=== PATIENT | male | born 1965 | race African-American/Black ===

== ENCOUNTER 2020-04-14 03:31 | Emergency (ER) | payer OTHER, SELFPAY ==
--- NOTE | ~2020-04-14 | XR_ITS ---
XR chest 2V DATE: 04/14/2020 04:24 INDICATION: Midline chest pain for 3 days TECHNIQUE: PA and lateral views COMPARISON: 08/24/2014 PA and lateral chest FINDINGS: Normal heart size. No hilar or mediastinal enlargement. No pulmonary infiltrate or consolid ation, pleural effusion or pulmonary vascular congestion or pneumothorax. IMPRESSION: No active cardiopulmonary disease Reviewed, dictated and finalized at location D.
--- NOTE | 2020-04-14 03:44 | ECG_ITS ---
Measurements Intervals [place] Rate: 78 P: 35 MI: 176 QRS: 43 QRSD: 109 T: 40 QT: 375 QTc: 430 Interpretive Statements SINUS RHYTHM MINIMAL Q WAVES- INFERIOR LEADS BORDERLINE ECG Electronically Signed On 04-14-2020 7:24:41 CDT by Calixto Garcia D.O.
[2020-04-14 03:47] VITALS: BP 133/87; PULSE 75; RESP 16; TEMP 36.8; O2SAT 97
--- NOTE | 2020-04-14 03:59 | ED.CHESTPAIN ---
HPI - Chest Pain General Chief Complaint: Chest Pain Stated Complaint: Chest pain Time Seen by Provider: 04/14/20 03:43 Source: RN notes reviewed History of Present Illness HPI narrative: Patient presents emergency department from home for chest pain. Patient states pain is been ongoing for the past 3 days. Pain is located in the midsternal chest and does not radiate. The pain does appear to be worse when he eats. Denies any fevers or chills shortness of breath abdominal pain nausea vomiting or any other symptoms. States he took no previous pain medication for her symptoms Related Data Home Medications Medication Instructions Recorded Confirmed hydrochlorothiazide PO DAILY 04/14/20 losartan 100 mg PO DAILY 04/14/20 metformin 500 mg PO DAILY 04/14/20 pantoprazole 40 mg PO DAILY 04/14/20 pravastatin 20 mg PO DAILY 04/14/20 sucralfate PO DAILY 04/14/20 Allergies Allergy/AdvReac Type Severity Reaction Status Date / Time No Known Allergies Allergy Mild Verified 04/14/20 03:53 Review of Systems Review of Systems: Narrative: Gen.: Denies fevers or chills ENT: Denies congestion Respiratory: Denies shortness of breath or cough CV: Reports chest pain GI: Denies abdominal pain nausea, emesis or diarrhea Musculoskeletal: Denies back pain or muscle pain Neuro: Denies numbness, tingling, weakness or focal weakness Skin: Denies rash Except as documented, all other systems reviewed and negative [facility] Past Medical History Medical History (Updated 04/14/20 @ 04:55 by Fidel Lopes DO) Diabetes mellitus Hypercholesterolemia Hypertension Social History Social History (Updated 04/14/20 @ 04:00 by Fidel Lopes DO) Smoking status: Never smoker Exam Narrative: Exam Narrative: APPEARANCE: No acute distress, nontoxic, resting in bed EYES: EOMI HEENT: Normocephalic, atraumatic, OMM RESPIRATORY: No respiratory distress Clear to auscultation bilaterally with no rhonchi wheezing or rales. CARDIOVASCULAR: Regular rate and rhythm without murmurs rubs or gallops. ABDOMINAL: Soft, nontender, nondistended, no rebound or guarding MUSCULOSKELETAl: Moves all extremities. No clubbing, cyanosis or edema. NEURO: Awake and alert. Following commands, speech normal, no focal deficits SKIN:: Warm, dry. No rashes lesions or abrasions PSYCHIATRIC: Normal affect/mood, Course Course Emergency Course: Patient states chest pain is resolved at this time Discussed with Dr. carter presentation work-up. Agrees with admission [facility] Discussed with patient and family results of workup and diagnosis. Discussed need for admission. Patient and family understand and agree to current treatment plan Vital Signs Vital signs: Vital Signs Temperature 98.3 F 04/14/20 03:47 Pulse Rate 75 04/14/20 03:47 Respiratory Rate 16 04/14/20 03:47 Blood Pressure 133/87 04/14/20 03:47 Pulse Oximetry 97 04/14/20 03:47 Temperature 98.3 F 04/14/20 03:47 Pulse Rate 75 04/14/20 03:47 Respiratory Rate 16 04/14/20 03:47 Blood Pressure 133/87 04/14/20 03:47 Pulse Oximetry 97 04/14/20 03:47 MDM - Chest Pain Lab Data Result diagrams: 04/14/20 04:15 04/14/20 04:15 Labs: Lab Results 04/14/20 04/14/20 04/14/20 Range/Units 04:15 04:15 04:15 WBC 9.7 (4.5-10.0) K/mm3 RBC 4.73 (4.6-6.20) M/mm3 Hgb 12.8 L (14.0-18.0) g/dL Hct 38.4 L (42.0-52.0) % MCV 81.2 (80-100) fl MCH 27.1 (26-34) pg MCHC 33.3 (32-36) g/dl RDW 14.9 H (11.5-14.5) % Plt Count 293 (150-375) k/mm3 MPV 10.1 (7.4-10.4) fl Immature Gran % (Auto) 0.2 (0-0.5) % Neut % (Auto) 49.1 (45.5-73.1) % Lymph % (Auto) 36.9 (18.3-44.2) % [place] % (Auto) 10.5 H (2.6-8.5) % Eos % (Auto) 2.8 (0-4.4) % Baso % (Auto) 0.5 (0.2-1.2) % Lymph # (Auto) 3.57 H (0.9-3.2) K/mm3 [place] # (Auto) 1.0 H (0.1-0.6) K/mm3 Eos # (Auto) 0.3 (0-0.3) K/m
[2020-04-14 04:00] VITALS: BP 131/96; PULSE 75; RESP 17; O2SAT 99
[2020-04-14 04:21] LABS: Basophils Absolute Auto 0.1 K/mm3 (0.0-0.1); Basophils Percent Auto 0.5 % (0.2-1.2); Eosinophils Absolute Auto 0.3 K/mm3 (0-0.3); Eosinophils Percent Auto 2.8 % (0-4.4); Hematocrit 38.4 % (42.0-52.0); Hemoglobin 12.8 g/dL (14.0-18.0); Immature Granulocyte Absolute 0.02 K/mm3 (0.00-0.031); Immature Granulocyte Percent A 0.2 % (0-0.5); Lymphocytes Absolute Auto 3.57 K/mm3 (0.9-3.2); Lymphocytes Percent Auto 36.9 % (18.3-44.2); Mean Corpuscular HGB Conc 33.3 g/dl (32-36); Mean Corpuscular Hemoglobin 27.1 pg (26-34); Mean Corpuscular Volume 81.2 fl (80-100); Mean Platelet Volume 10.1 fl (7.4-10.4); Monocytes Percent Auto 10.5 % (2.6-8.5); Neutrophils Absolute Auto 4.7 K/mm3 (1.3-6.7); Neutrophils Percent Auto 49.1 % (45.5-73.1); Platelet Count Result 293 k/mm3 (150-375); Red Blood Count 4.73 M/mm3 (4.6-6.20); Red Cell Distribution Width 14.9 % (11.5-14.5); White Blood Count 9.7 K/mm3 (4.5-10.0)
[2020-04-14] MEDS: ASPIRIN 81 MG CHEWABLE TABLET 324 MG PO (04:26)
[2020-04-14 04:30] VITALS: BP 125/85; PULSE 81; RESP 16; O2SAT 97
[2020-04-14 04:33] LABS: Prothrombin Time 12.5 Seconds (11.1-14.7)
[2020-04-14 04:44] LABS: Troponin I < 0.012 ng/mL (0.000-0.034)
[2020-04-14 04:49] LABS: Alanine Aminotransferase 36 U/L (4-50); Alkaline Phosphatase 45 U/L (38-126); Aspartate Amino Transferase 40 U/L (17-59); Bilirubin,Total 0.3 mg/dL (0.2-1.3); Blood Urea Nitrogen 21 mg/dL (9-20); Carbon Dioxide 26 mmol/L (22-30); Chloride 102 mmol/L (98-107); Estimated CRCL calculation 79 ml/min; Estimated Glomerular Filt Rate > 60; Glucose 93 mg/dL (75-110); Lipase 164 U/L (23-300); Potassium 3.8 mmol/L (3.4-5.0); Sodium 136 mmol/L (137-145)
[2020-04-14 05:00] VITALS: BP 134/91; PULSE 76; RESP 16; O2SAT 98
[2020-04-14 05:13] LABS: Cholesterol 162 mg/dL (0-200); HDL Direct 28 mg/dL; Triglycerides 199 mg/dL (<150)
[2020-04-14 05:24] LABS: LDL Cholesterol Direct 99 mg/dL
--- NOTE | 2020-04-14 05:30 | PC.NURSE ---
Patient decided against being admitted to hospital as he says he needs to return his rental car-Dr Lopes aware and spoke with patient. Patient is willing to stay for second Troponin draw then he will sign out AMA. Patient remains on cardiac monitoring
[2020-04-14 06:28] VITALS: BP 139/96; PULSE 72; RESP 15; O2SAT 98
--- NOTE | 2020-04-14 07:10 | PC.NURSE ---
Report to Eleonora RN-she assumed care of patient
[2020-04-14 08:08] LABS: Troponin I < 0.012 ng/mL (0.000-0.034)
--- NOTE | 2020-04-14 08:08 | PC.NURSE ---
Pt called out and states I got to go now . I informed pt that we are waiting for 2nd tropoin level, pt states he I have to go now. I had pt sign AMA paperwork. Pt walked to exit
== END 2020-04-14 08:12 | disposition left against medical advice (07) ==
LOC: ANHED 06:09 → ANHCPC 13:20
PROVIDERS: Emergency Provider Emergency Medicine
DX: R07.9 Chest pain, unspecified (principal); E11.9 Type 2 diabetes mellitus without complications; E78.00 Pure hypercholesterolemia, unspecified; I10 Essential (primary) hypertension; Z79.84 Long term (current) use of oral hypoglycemic drugs; R94.31 Abnormal electrocardiogram [ECG] [EKG]
CPT/HCPCS: 36415; 71046; 80053; 80061; 83690; 84484; 85025; 85610; 85730; 93005; 99284; 99285; A9270

== ENCOUNTER 2020-09-18 23:51 | Emergency (ER) | payer OTHER, SELFPAY ==
[2020-09-18 23:58] VITALS: BP 124/94; PULSE 94; RESP 18; TEMP 37.2; O2SAT 96
--- NOTE | 2020-09-19 00:53 | ED.GENADULT ---
HPI - General Adult General Chief complaint: Upper Respiratory Infection Stated complaint: congestion, sore throat Time Seen by Provider: 09/19/20 00:01 Source: RN notes reviewed History of Present Illness HPI narrative: Patient presents to emergency department from home for sore throat. Patient states that for the past week he has been having sore throat as well as nasal drainage. He states he was recently diagnosed with Covid 3 weeks ago but has recovered from that he denies any fevers or chills chest pain shortness of breath abdominal pain nausea vomiting diarrhea cough or any other symptoms Related Data Home Medications Medication Instructions Recorded Confirmed hydrochlorothiazide PO DAILY 04/14/20 losartan 100 mg PO DAILY 04/14/20 metformin 500 mg PO DAILY 04/14/20 pantoprazole 40 mg PO DAILY 04/14/20 pravastatin 20 mg PO DAILY 04/14/20 sucralfate PO DAILY 04/14/20 Allergies Allergy/AdvReac Type Severity Reaction Status Date / Time No Known Allergies Allergy Mild Verified 04/14/20 03:53 Review of Systems Review of Systems: Narrative: Gen.: Denies fevers or chills Eyes: Denies eye pain or visual change ENT: See HPI Respiratory: Denies shortness of breath or cough CV: Denies chest pain or palpitations GI: Denies abdominal pain nausea, emesis or diarrhea Musculoskeletal: Denies back pain or muscle pain Neuro: Denies numbness, tingling, weakness or focal weakness Skin: Denies rash Except as documented, all other systems reviewed and negative [facility] Past Medical History Medical History Diabetes mellitus Hypercholesterolemia Hypertension Social History Social History Smoking status: Never smoker Exam Narrative: Exam Narrative: APPEARANCE: No acute distress, nontoxic, resting in bed EYES: EOMI HEENT: Normocephalic, atraumatic, TMs clear bilaterally nares patent oral mucosa moist erythema in posterior pharynx bilateral tonsils tonsils 2+ uvula midline no trismus RESPIRATORY: No respiratory distress Clear to auscultation bilaterally with no rhonchi wheezing or rales. CARDIOVASCULAR: Regular rate and rhythm without murmurs rubs or gallops. ABDOMINAL: Soft, nontender, nondistended, no rebound or guarding MUSCULOSKELETAl: Moves all extremities. No clubbing, cyanosis or edema. NEURO: Awake and alert. Following commands, speech normal, no focal deficits SKIN:: Warm, dry. No rashes lesions or abrasions PSYCHIATRIC: Normal affect/mood, Course Course Emergency Course: Discussed with patient results of workup and diagnosis. Discussed need for follow-up with primary care, proper use of medication, and reasons to return to the emergency department. Patient understands and agrees to current treatment plan Vital Signs Vital signs: Vital Signs Temperature 98.9 F 09/18/20 23:58 Pulse Rate 94 09/18/20 23:58 Respiratory Rate 18 09/18/20 23:58 Blood Pressure 124/94 H 09/18/20 23:58 Pulse Oximetry 96 09/18/20 23:58 Temperature 98.9 F 09/18/20 23:58 Pulse Rate 94 09/18/20 23:58 Respiratory Rate 18 09/18/20 23:58 Blood Pressure 124/94 H 09/18/20 23:58 Pulse Oximetry 96 09/18/20 23:58 Medical Decision Making Vital Signs Vital Signs: Vital Signs Temperature 98.9 F 09/18/20 23:58 Pulse Rate 94 09/18/20 23:58 Respiratory Rate 18 09/18/20 23:58 Blood Pressure 124/94 H 09/18/20 23:58 Pulse Oximetry 96 09/18/20 23:58 Temperature 98.9 F 09/18/20 23:58 Pulse Rate 94 09/18/20 23:58 Respiratory Rate 18 09/18/20 23:58 Blood Pressure 124/94 H 09/18/20 23:58 Pulse Oximetry 96 09/18/20 23:58 Lab Data Labs: Strep Screen Presumptive Negative *(Reference Range: Negative)* Discharge Plan Discharge Clinical Impression: Pharyngitis Patient Disposition: Home, Self-Care Condit
[2020-09-19] MEDS: AMOXICILLIN 500 MG CAPSULE PO (01:08)
[2020-09-19 01:13] VITALS: BP 128/85; PULSE 87; RESP 18; TEMP 36.4; O2SAT 96
== END 2020-09-19 01:16 | disposition home or self-care (01) ==
PROVIDERS: Emergency Provider Emergency Medicine
DX: J02.9 Acute pharyngitis, unspecified (principal); Z86.19 Personal history of other infectious and parasitic diseases; E11.9 Type 2 diabetes mellitus without complications; E78.00 Pure hypercholesterolemia, unspecified; I10 Essential (primary) hypertension; Z79.84 Long term (current) use of oral hypoglycemic drugs
CPT/HCPCS: 87081; 87880; 99283; A9270

== ENCOUNTER 2023-11-20 01:27 | Emergency (ER) | payer OTHER, SELFPAY ==
--- NOTE | ~2023-11-20 | XR_ITS ---
Clinical Indication: Cough PA and lateral views of the chest: Comparison: 04/14/2020 Findings: The lungs are clear, without evidence of focal consolidation or pleural effusion. Cardiome diastinal silhouette is within normal limits. Bones and soft tissues are unremarkable. Impression: Normal chest. Reviewed, dictated and finalized at [facility]. BUTTER HAND Impression: Normal chest.
[2023-11-20 01:31] VITALS: BP 176/97; PULSE 98; RESP 20; TEMP 37; O2SAT 97
[2023-11-20 01:55] VITALS: O2SAT 98
[2023-11-20 02:21] LABS: Strep Group A RT-PCR NOT DETECTED (Negative)
--- NOTE | 2023-11-20 02:23 | ED.URI ---
HPI - URI/Sore Throat General Chief Complaint: Upper Respiratory Infection Stated Complaint: uri Time Seen by Provider: 11/20/23 01:53 Source: patient Limitations: no limitations History of Present Illness HPI Narrative: patient is a 58-year-old male presents to the emergency department for a sore throat, sinus congestion, cough, body aches. Patient states he has been feeling some slight. Throat discomfort for the past 3 weeks and then approximately 8 days ago he developed sinus congestion and a cough productive of yellow sputum in addition to some mild body aches. Patient denies sick contacts. Patient denies fever. Patient notes he has been taking [id number] decongestant medication for symptoms. Patient denies being vaccinated for COVID her influenza. Patient denies any recent antibiotic use. Patient denies ear pain, chest pain, difficulty breathing diarrhea, vomiting, recent injuries. Related Data Home Medications Medication Instructions Recorded Confirmed hydrochlorothiazide 12.5 mg tablet PO DAILY 04/14/20 losartan 100 mg tablet 100 mg PO DAILY 04/14/20 metformin 500 mg tablet 500 mg PO DAILY 04/14/20 pantoprazole 40 mg tablet,delayed 40 mg PO DAILY 04/14/20 release pravastatin 20 mg tablet 20 mg PO DAILY 04/14/20 sucralfate 1 gram tablet PO DAILY 04/14/20 Allergies Allergy/AdvReac Type Severity Reaction Status Date / Time No Known Allergies Allergy Mild Verified 04/14/20 03:53 Review of Systems Review of Systems: A 10 system review of systems was completed on the patient and is negative except for what is stated in the HPI. Nursing and ancillary documentation was reviewed. PMFSH Past Medical History Medical History Diabetes mellitus Hypercholesterolemia Hypertension Social History Social History Smoking status: Never smoker Comments At time of signature, I have reviewed and agree with nursing past medical, surgical, social and family history unless otherwise noted. Please see the nursing chart for further information. There is no relevant family history pertinent to the presenting complaint. Exam Narrative: CONST: No acute distress. Well nourished. HENMT: Head is normocephalic and atraumatic. Moist mucous membranes. No posterior oropharynx erythema. Mild bilateral nasal turbinate edema. No sinus tenderness to palpation bilaterally. Bilateral tympanic membranes are without erythema or bulging. Uvula is midline. no tonsillar exudates. EYES: No conjunctival icterus, injection, or pallor. PERRL. NECK: No meningeal signs. Scant bilateral anterior cervical palpable shotty lymphadenopathy. No JVD. RESP: Able to speak in full sentences. Normal respiratory effort. CTAB. CARDIO: Regular rate. Regular rhythm. 2+ DP and radial pulses bilaterally. GI: Nondistended. No tenderness to palpation. Soft. : No CVA tenderness to palpation. SKIN: No rashes or lesions noted on exposed skin. NEURO: Oriented x3. Moves all extremities. EXTREM/MSK/BACK: No pedal edema. PSYCH: Normal affect. Course Vital Signs Vital signs: Vital Signs Temperature 98.6 F 11/20/23 01:31 Pulse Rate 98 11/20/23 01:31 Respiratory Rate 20 11/20/23 01:31 Blood Pressure 176/97 H 11/20/23 01:31 Pulse Oximetry 97 11/20/23 01:31 Oxygen Delivery Room Air 11/20/23 01:31 Temperature 98.6 F 11/20/23 01:31 Pulse Rate 98 11/20/23 01:31 Respiratory Rate 20 11/20/23 01:31 Blood Pressure 176/97 H 11/20/23 01:31 Pulse Oximetry 98 11/20/23 01:55 Oxygen Delivery Room Air 11/20/23 01:55 MDM - URI/Sore Throat MDM Narrative Medical decision making narrative: Patient presents with the above complaint. Initial vitals are remarkable for no significant abnormalities. Physical examination as noted above. Plan discussed: Chest x-ray, viral nasopharyng
[2023-11-20 02:35] LABS: Influenza A QL RT-PCR Negative (Negative); Influenza B QL RT-PCR Negative (Negative); RSV RNA, RT-PCR Negative (Negative); SARS-CoV-2 RNA PCR Negative (Negative)
[2023-11-20] MEDS: AMOXICILLIN/CLAVULANATE K 875-125 MG TAB 1 TABLET PO (02:46)
[2023-11-20 02:49] VITALS: BP 166/74; PULSE 79; RESP 17; O2SAT 98
== END 2023-11-20 02:50 | disposition home or self-care (01) ==
PROVIDERS: Emergency Provider Student in an Organized Health Care Education/Training Program
DX: J06.9 Acute upper respiratory infection, unspecified (principal); Z20.822 Contact with and (suspected) exposure to COVID-19; I10 Essential (primary) hypertension; E11.9 Type 2 diabetes mellitus without complications; E78.00 Pure hypercholesterolemia, unspecified; Z79.84 Long term (current) use of oral hypoglycemic drugs
CPT/HCPCS: 71046; 87637; 87651; 99283; A9270